=== PATIENT | male | born 1950 | race Caucasian/White ===

== ENCOUNTER 2019-10-21 15:15 | Emergency (ER) | payer MEDICARE, SELFPAY ==
[2019-10-21] VITALS (11 sets, daily range): BP systolic 95–111; BP diastolic 63–70; PULSE 78–98; RESP 21–38; TEMP 36.4–37.1; O2SAT 92–100
--- NOTE | ~2019-10-21 | CT_ITS ---
EXAMINATION: CT brain wo con EXAM DATE: 10/21/2019 15:41 INDICATION: Altered level of consciousness. STEMI. TECHNIQUE: Spiral CT of the head was performed without contrast. Axial, coronal and sagittal images were reviewed. The dose-length product (DLP) for this examination was 681.00 mGy-cm. The exposure w as tailored according to patient size, and iterative reconstruction (ASIR) was used as additional dos e reduction technique. There is no prior study for comparison. FINDINGS: There is no acute intraparenchymal hemorrhage. No evidence of intraparenchymal brain mass lesion. No evidence of acute infarction. Please note that initial head CT has limited sensitivity f or small or acute infarctions. Left occipital calvarial arachnoid granulation. There is periventric ular and subcortical hypodensity, nonspecific but probably related to small vessel ischemic disease. There is prominence of the sulci and ventricles related to cerebral atrophy. There is intracrania l carotid arteriosclerosis. There are no extra-axial collections. There is no mass effect or midlin e shift. The orbits are unremarkable. Soft tissue is unremarkable. The visualized sinuses and mast oid air cells are well aerated. IMPRESSION: 1. No acute intracranial findings. 2. Chronic age related findings. Reviewed, dictated and finalized at location A.
--- NOTE | ~2019-10-21 | XR_ITS ---
EXAMINATION: XR chest 1V INDICATION: Decreased breath sounds TECHNIQUE: AP view the chest is obtained on two radiographs. COMPARISON: None available FINDINGS: There is masslike opacity of the left midlung zone. A right pleural effusion is present. Ca rdiomegaly is noted. There is subcutaneous gas of the right chest wall which tracks into the right rivera praclavicular space and neck. IMPRESSION: 1. Masslike opacity of the right midlung zone which could be infection/inflammation, malignancy, or p ossibly pleural fluid. Further evaluation with CT of the chest is recommended. 2. Subcutaneous gas in the right chest wall tracking into the neck of unclear etiology, possibly rela maureen to right lung findings and can also be evaluated with chest CT. Reviewed, dictated and finalized at location B. IMPRESSION: 1. Masslike opacity of the right midlung zone which could be infection/inflamma tion, malignancy, or possibly pleural fluid. Further evaluation with CT of the chest is recommended. 2. Subcutaneous gas in the right chest wall tracking into the neck of unclear e tiology, possibly related to right lung findings and can also be evaluated with chest CT.
--- NOTE | ~2019-10-21 | CT_ITS ---
EXAMINATION: CT chest w con EXAM DATE: 10/21/2019 17:20 INDICATION: Abnormal chest x-ray. TECHNIQUE: Spiral CT of the chest following intravenous injection of 75 mL Omnipaque 350. Axial, cor onal and sagittal images were reviewed. Coronal maximum intensity pixel images of chest reviewed. Kranthi olmstead dose-length product (DLP) for this examination was 446.46 mGy-cm. The exposure was tailored accor ding to patient size (auto mA exposure control), and iterative reconstruction (ASIR) was used as marquita tional dose reduction technique. Correlation is made to chest x-ray same day. FINDINGS: There is infiltrative appearing right hilar soft tissue, probably combination of malignancy and metastatic lymphadenopathy, also insinuating around the donna. This is occluding the right midd le lobe bronchus causing narrowing of some other basilar segmental bronchi. There are multiple region s of loculated pleural fluid, given appearance could be malignant pleural effusion. Several of these loculations of small amount of gas inside, loculated hydropneumothoraces. Overall moderate amount of pleural fluid is present. There is moderate amount of gas identified within the deep fascial planes o f the right axilla, and small amount along the right posterior paraspinal musculature. There is small to moderate nonloculated left pleural effusion. Right lung multi segmental segmental a telectasis, left lower lobe subsegmental atelectasis. There is moderate pericardial effusion. No jaida tral pulmonary emboli. Some contrast refluxing into the hepatic veins could indicate poor right heart function. There are no osteoblastic or osteolytic lesions identified. IMPRESSION: 1. Infiltrative right hilar malignancy. 2. Multiple right pleural loculations, probably malignant and some with gas (loculated hydropneumoth oraces). 3. Right axillary subcutaneous gas, correlate for crepitus. Reportedly patient did have recent biops y which, if done percutaneously, could potentially explain this but please exclude fasciitis clinical ly. 4. Moderate pericardial effusion, small to moderate left pleural effusion. 5. Multisegmental right lung, subsegmental left lung atelectasis. Reviewed, dictated and finalized at location A. IMPRESSION: 1. Infiltrative right hilar malignancy. 2. Multiple right pleural loculations, probably malignant and some with gas (l oculated hydropneumothoraces). 3. Right axillary subcutaneous gas, correlate for crepitus. Reportedly patient did have recent biopsy which, if done percutaneously, could potentially explai n this but please exclude fasciitis clinically. 4. Moderate pericardial effusion, small to moderate left pleural effusion. 5. Multisegmental right lung, subsegmental left lung atelectasis.
--- NOTE | 2019-10-21 15:23 | ECG_ITS ---
Measurements Intervals [place] Rate: 96 P: NV: 0 QRS: 22 QRSD: 98 T: 42 QT: 375 QTc: 476 Interpretive Statements ACCLERATED JUNCTIONAL RHYTHM LOW QRS VOLTAGE- DIFFUSE LEADS CANNOT RULE OUT SEPTAL INFARCT, AGE INDETERMINATE ST ELEVATION IN ANTERIOR LEADS- CONSIDER ACUTE INJURY, PERICARDITIS OR EARLY REPOALRIZATION ABNORMAL ECG Electronically Signed On 10-21-2019 15:54:53 CDT by Cuate Rushing D.O.
--- NOTE | 2019-10-21 15:29 | ED.AMS ---
HPI - Altered Mental Status General Chief Complaint: Altered Mental Status Stated Complaint: SOB, STEMI Time Seen by Provider: 10/21/19 15:29 Source: family and EMS Mode of arrival: EMS Limitations: altered mental status History of Present Illness HPI narrative: Patient is a 69-year-old male with a history of recurrent right-sided hilar mass, right pleural effusion, recent discharge from [facility] on October 18 who presents for evaluation of altered mental status and shortness of breath. Patient was transported via EMS for shortness of breath, they were concerned for possible ST elevation on EKG, a STEMI was called, but after review of the EKG in transport, I do not feel this is consistent with STEMI. At the time of assessment after EMS arrived, patient is altered, pale appearing. Patient is denying any chest pain, he is reporting shortness of breath. Additional history unable to be obtained secondary to altered mental status. Related Data Home Medications Medication Instructions Recorded Confirmed apixaban 5 mg tablet 5 mg PO BID 03/22/19 diltiazem HCl 120 mg 120 mg PO BID 03/22/19 capsule,extended release 12 hr flecainide 50 mg tablet 50 mg PO BID tablet 03/22/19 ibuprofen 200 mg capsule 200 mg PO Q6H PRN 03/22/19 loratadine 10 mg tablet 10 mg PO DAILY 03/22/19 cquoxlxh-esw-sqonu acid 300 1 tablet PO DAILY 03/22/19 mcg-lycopene 600 mcg-lutein 300 mcg tablet sildenafil 100 mg tablet 100 mg PO DAILY PRN 03/22/19 Allergies Allergy/AdvReac Type Severity Reaction Status Date / Time codeine AdvReac Unknown UPSET Verified 03/22/19 10:59 STOMACH Review of Systems Review of Systems: ROS unobtainable: Yes unobtainable due to mental status PMFSH Past Medical History Medical History (Updated 10/21/19 @ 17:13 by Wendi Juarez MD) Depression with anxiety Dyslipidemia Erectile dysfunction 12/29/2017 Flexion contracture of joint of left hand History of Tgtza-Mtdxflwvs-Grvzc (WPW) syndrome Hx of non-Hodgkin's lymphoma Lung mass Pleural effusion Supraventricular tachycardia Tinnitus, bilateral Vitamin D deficiency Surgical History Surgical History (Updated 03/22/19 @ 11:21 by Farzana Edwards) History of cardiac catheterization 12/2018 History of tonsillectomy and adenoidectomy [place] teeth extracted Social History Social History Smoking status: Former smoker Tobacco type: cigarettes Second hand tobacco smoke exposure: No Smoking end date: 02/09/97 Alcohol intake: current Substance use: never Substance use type: does not use Exam Narrative: Exam Narrative: GENERAL: Somnolent, arousable to verbal stimuli, fatigued appearing HEAD: Normocephalic, atraumatic. EYES: PERRLA and EOMI. ENT: Nares clear, no rhinorrhea or epistaxis. Mucous membranes dry NECK: Supple. CHEST: Hypoxemia, no tachypnea, mild use of accessory muscles, decreased breath sounds bilaterally, crackles present bilaterally HEART: Regular rate, sinus rhythm ABDOMEN:Non distended, non tender EXTREMITIES: Normal range of motion. No edema. SKIN: Pale, cool, no rash, surgical incision site right lateral chest wall, noted to have ecchymosis, sutures still intact NEURO:No focal deficits. Alert and oriented x3 Course Vital Signs Vital signs: Vital Signs Temperature 36.4 C 10/21/19 15:10 Pulse Rate 98 10/21/19 15:10 Respiratory Rate 24 H 10/21/19 15:10 Blood Pressure 100/67 10/21/19 15:10 Pulse Oximetry 92 10/21/19 15:10 Temperature 36.7 C 10/21/19 18:10 Pulse Rate 78 10/21/19 18:10 Respiratory Rate 22 H 10/21/19 18:10 Blood Pressure 99/70 L 10/21/19 18:10 Pulse Oximetry 100 10/21/19 18:10 MDM - Altered Mental Status MDM Narrative Medical decision making narrative: Patient presented for evaluation of shortness of breath. At the time of assessment, patient is ill-appearing, myself as well as cardiologis
[2019-10-21] MEDS: ONDANSETRON INJ 4 MG/2 ML VIAL IV PUSH (15:31)
[2019-10-21] MEDS: NALOXONE HCL 0.4 MG/ML VIAL IV PUSH (15:31)
[2019-10-21 15:34] LABS: Alveolar/Arterial O2 Gradient 115.6 mmHg; Base Excess ABG -2.3 mEq/l (+/-2.0); Carboxyhemoglobin 0.3 % THb (0-2.0); Fractional Inspired Oxygen 32 %; HCO3 ABG 20.3 mEq/l (22.0-26.0); Methemoglobin ABG 0.2 %THb (0-1.5); Oxygen Content ABG 15.7 %vol (16.0-22.0); Oxygen Saturation ABG 96.5 % (95.0-100.0); Oxyhemoglobin 94.9 % THb (90.0-100.0); PCO2 ABG 28.5 mmHg (35.0-45.0); PO2 ABG 79.2 mmHg (80.0-100.0); PO2 FiO2 Ratio Arterial Blood 2.47 %; Reduced Hemoglobin 4.6 %THb (0-5.0); Total Hemoglobin 11.7 g/dL (12.0-18.0); pH ABG 7.471 (7.350-7.450)
[2019-10-21 15:35] LABS: Device NASAL CANNULA; Modified Allen's Test Pass; Site Drawn RIGHT RADIAL
[2019-10-21 15:43] LABS: Basophils Percent Auto 0.3 % (0.2-1.2); Eosinophils Absolute Auto 0.1 K/mm3 (0-0.3); Eosinophils Percent Auto 0.5 % (0-4.4); Hematocrit 31.6 % (42.0-52.0); Hemoglobin 10.8 g/dL (14.0-18.0); Immature Granulocyte Absolute 0.04 K/mm3 (0.00-0.031); Immature Granulocyte Percent A 0.4 % (0-0.5); Lymphocytes Absolute Auto 0.46 K/mm3 (0.9-3.2); Lymphocytes Percent Auto 4.7 % (18.3-44.2); Mean Corpuscular HGB Conc 34.2 g/dl (32-36); Mean Corpuscular Hemoglobin 33.8 pg (26-34); Mean Corpuscular Volume 98.8 fl (80-100); Mean Platelet Volume 9.8 fl (7.4-10.4); Monocytes Percent Auto 9.7 % (2.6-8.5); Neutrophils Absolute Auto 8.2 K/mm3 (1.3-6.7); Neutrophils Percent Auto 84.4 % (45.5-73.1); Platelet Count Result 317 k/mm3 (150-375); Red Cell Distribution Width 14.5 % (11.5-14.5); White Blood Count 9.8 K/mm3 (4.5-10.0)
[2019-10-21 15:57] LABS: INR 1.4; Partial Thromboplastin Time 28.6 SECONDS (22.3-36.8); Prothrombin Time 16.7 Seconds (11.1-14.7)
[2019-10-21 15:57] LABS: Lactic Acid Reflex 2.7 mmol/L (0.7-2.1)
[2019-10-21 15:59] LABS: Alanine Aminotransferase 35 U/L (4-50); Albumin Level 2.8 g/dL (3.5-5.1); Alkaline Phosphatase 146 U/L (38-126); Anion Gap 9 mmol/L (8-16); Aspartate Amino Transferase 42 U/L (17-59); Blood Urea Nitrogen 18 mg/dL (9-20); Calcium 8.4 mg/dL (8.4-10.2); Carbon Dioxide 24 mmol/L (22-30); Chloride 95 mmol/L (98-107); Estimated Glomerular Filt Rate > 60; Glucose 140 mg/dL (75-110); Potassium 4.5 mmol/L (3.4-5.0); Sodium 128 mmol/L (137-145)
[2019-10-21 16:03] LABS: NT Pro B Type Natriuretic Pept 1560 PG/ML (5-100)
[2019-10-21 16:07] LABS: Troponin I < 0.012 ng/mL (0.000-0.034)
[2019-10-21 16:11] LABS: CRP 23.9 mg/dL (<1.0)
[2019-10-21 16:18] LABS: Ammonia < 9 umol/L (9-30)
--- NOTE | 2019-10-21 17:05 | PC.NURSE ---
Patient is in radiology at this time.
--- NOTE | 2019-10-21 17:25 | PC.NURSE ---
Patient is in radiology at this time.
[2019-10-21] MEDS: SODIUM CHLORIDE 0.9% IV 1,000 ML 999 ML IV CONT (18:05)
[2019-10-21] MEDS: LIDOCAINE HCL 2% GEL UROJET 10 ML PKG (18:05)
[2019-10-21 18:34] LABS: Add Urine Microscopic? YES; Appearance Urine Clear (Clear); Bacteria Urine Trace /hpf; Bilirubin Urine Negative (Negative); Blood Urine 2+ (Negative); Color Urine Amber (Yellow); Glucose Urine UA Negative (Negative); Ketones Urine Negative (Negative); Leukocyte Esterase Ur Negative LEU/UL (Negative); Mucus Urine Moderate /lpf; Nitrate Urine Negative (Negative); Protein Urine 1+ mg/dL (Negative); RBC Urine 21-50 /hpf (0-2); Squamous Epithelial Cell Urine Rare /hpf (Few); WBC Urine 0-3 /hpf
[2019-10-21 18:35] LABS: Specific Grav Ur 1.042 (1.001-1.035)
[2019-10-21 18:37] LABS: Amphetamine Screen Urine Negative (Negative); Barbiturate Screen Urine Negative (Negative); Benzodiazepines Screen Urine Positive (Negative); Cannabinoid Screen Urine Negative (Negative); Cocaine Screen Urine Negative (Negative); Methadone Screen Urine Negative (Negative); Opiate Screen Urine Positive (Negative); Phencyclidine Screen Urine Negative (Negative)
[2019-10-21 18:39] LABS: Reflex Lactic Acid Yes or No Add Lactic
[2019-10-21 19:17] LABS: Alveolar/Arterial O2 Gradient 65.6 mmHg; Base Excess ABG -0.7 mEq/l (+/-2.0); Carboxyhemoglobin 0.1 % THb (0-2.0); Fractional Inspired Oxygen 36 %; HCO3 ABG 23.6 mEq/l (22.0-26.0); Methemoglobin ABG 0.2 %THb (0-1.5); Oxygen Content ABG 15.4 %vol (16.0-22.0); Oxygen Saturation ABG 98.9 % (95.0-100.0); PCO2 ABG 37.4 mmHg (35.0-45.0); PO2 ABG 147.7 mmHg (80.0-100.0); Reduced Hemoglobin 1.7 %THb (0-5.0); pH ABG 7.418 (7.350-7.450)
[2019-10-21 19:18] LABS: Lactic Acid 1.1 mmol/L (0.7-2.1)
[2019-10-21 19:18] LABS: Device NASAL CANNULA; Modified Allen's Test Pass; Site Drawn LEFT RADIAL
== END 2019-10-21 20:30 | disposition short-term general hospital (02) ==
PROVIDERS: Emergency Provider Emergency Medicine; PCP Family Medicine
DX: J90 Pleural effusion, not elsewhere classified (principal); E86.0 Dehydration; R41.0 Disorientation, unspecified; R65.20 Severe sepsis without septic shock; Z87.891 Personal history of nicotine dependence; I45.6 Pre-excitation syndrome; Z85.72 Personal history of non-Hodgkin lymphomas; R06.02 Shortness of breath
CPT/HCPCS: 36415; 36600; 51702; 70450; 71045; 71260; 80053; 80307; 81001; 82140; 82375; 82805; 83050; 83605; 83880; 84484; 85025; 85610; 85730; 86140; 87040; 93005; 96365; 96367; 96375; 99285; J0692; J2310; J2405; J3370; J7030; Q9967

== ENCOUNTER 2019-11-27 05:55 | Emergency (ER) | payer MEDICARE, SELFPAY ==
--- NOTE | ~2019-11-27 | CT_ITS ---
EXAMINATION: CTA chest PE protocol DATE: 11/27/2019 07:40 INDICATION: Shortness of breath. TECHNIQUE: Computed tomography angiography (CTA) of the chest was performed with 100 mL Omnipaque-350 intravenous contrast timed to evaluate the pulmonary arteries. Coronal maximum intensity projection 3D-reconstructions were created by the technologist. Automated exposure control and iterative reconst ruction technique were employed. The dose-length product was 684.18 mGy-cm. COMPARISON: Chest CT 10/21/2019 FINDINGS: The lungs demonstrate widespread smooth septal thickening with areas of groundglass opacity (crazy paving). There are staple lines in right middle lobe. Calcified left lung nodules and calcifi ed left hilar lymph nodes are consistent with old granulomatous disease. There is a small loculated r ight pleural effusion. There is a small left pleural effusion. There are right-sided pleural catheter is noted. There is mucous in the trachea. There is right atrial enlargement of the heart. There are coronary artery calcifications. No pericardial effusion. There is no pulmonary embolus. Calcification s in the spleen are consistent with old granulomatous disease. There is severe thoracic spondylosis. IMPRESSION: 1. No pulmonary embolus. 2. Moderate pulmonary edema. 3. Small loculated right pleural effusion with pleural catheter. Small left pleural effusion. Reviewed, dictated and finalized at location A. IMPRESSION: 1. No pulmonary embolus. 2. Moderate pulmonary edema. 3. Small loculated right pleural effusion with pleural catheter. Small left ple ural effusion.
--- NOTE | ~2019-11-27 | XR_ITS ---
EXAMINATION: XR chest 1V portable DATE: 11/27/2019 06:39 INDICATION: Hypoxemia. TECHNIQUE: A single frontal view of the chest was obtained on 2 radiographs. COMPARISON: Chest single view 10/21/2019, chest CT 11/27/2019 FINDINGS: There are airspace and interstitial opacities in all lung zones bilaterally. There is a sma ll loculated right pleural effusion with pleural catheter. No pneumothorax. The heart size is normal. IMPRESSION: 1. Diffuse lung disease, consistent with moderate pulmonary edema. 2. Small loculated right pleural effusion with pleural catheter. Reviewed, dictated and finalized at location A.
[2019-11-27 06:01] VITALS: BP 99/86; PULSE 100; RESP 41; TEMP 36.3; O2SAT 70
--- NOTE | 2019-11-27 06:06 | ED.SOB ---
HPI - SOB/Dyspnea General Chief Complaint: Shortness of Breath/Dyspnea <Wendi Juarez MD - Last Filed: 11/27/19 07:09> Stated Complaint: sob <Wendi Juarez MD - Last Filed: 11/27/19 07:09> Time Seen by Provider: 11/27/19 06:06 <Wendi Juarez MD - Last Filed: 11/27/19 07:09> Source: patient <Wendi Juarez MD - Last Filed: 11/27/19 07:09> Mode of arrival: wheelchair <Wendi Juarez MD - Last Filed: 11/27/19 07:09> Limitations: no limitations <Wendi Juarez MD - Last Filed: 11/27/19 07:09> History of Present Illness HPI Narrative: Patient is a 69-year-old male with a history of B-cell non-Hodgkin lymphoma, recurrent right-sided pleural effusion who is following at [facility] who presents to the emergency department for evaluation of shortness of breath. Patient with increased shortness of breath over the past 24 hours. Patient denying any chest pain, cough or fever. No rhinorrhea or congestion. Pt without any recent known covid exposures. He denies myalgias. Patient discharged from [facility] approximately 4 weeks prior. Has been doing well at home otherwise. Family has been removing fluid from his right pleurodesis tubing, patient's reported that each day has had decreased fluid removal, yesterday she was only able to remove 75 mL. He denies any lower leg swelling, calf pain or edema. <Wendi Juarez MD - Last Filed: 11/27/19 07:09> Related Data Home Medications: Home Medications Medication Instructions Recorded Confirmed ibuprofen 200 mg capsule 800 mg PO HS PRN 03/22/19 acetaminophen [Tylenol Extra 1,000 mg PO TID PRN 10/21/19 Strength] calcium carbonate [Antacid 10/21/19 (calcium carbonate)] loratadine-pseudoephedrine tablet PO 10/21/19 [Claritin-D 12 Hour] oxycodone 10/21/19 polyethylene glycol 3350 [Miralax] 17 g PO BID 10/21/19 acyclovir 11/27/19 allopurinol 11/27/19 lactulose 11/27/19 <Wendi Juarez MD - Last Filed: 11/27/19 07:09> Allergies/Adverse Reactions: Allergies Allergy/AdvReac Type Severity Reaction Status Date / Time codeine AdvReac Unknown UPSET Verified 10/21/19 19:11 STOMACH gabapentin AdvReac Hallucinati Verified 11/27/19 06:13 ng <Wendi Juarez MD - Last Filed: 11/27/19 07:09> Review of Systems Review of Systems: Narrative: CONSTITUTIONAL: Denies fever, chills, or sweats. EYES: Denies visual changes ENT: Denies rhinorrhea, congestion, sore throat, or otalgia. CARDIOVASCULAR: Denies chest pain, palpitations, or edema. RESPIRATORY: Reports shortness of breath, denies cough GASTROINTESTINAL: Denies abdominal pain, nausea, vomiting, or diarrhea. GENITOURINARY: Denies dysuria or hematuria. SKIN: Denies rash or itching. MUSCULOSKELETAL: Denies back pain, joint pain, or myalgia. NEUROLOGIC: Denies headache, numbness, or weakness. <Wendi Juarez MD - Last Filed: 11/27/19 07:09> [facility] Past Medical History Medical History: Medical History Depression with anxiety Dyslipidemia Erectile dysfunction 12/29/2017 Flexion contracture of joint of left hand History of Rbuqx-Bghxmyusi-Hcraa (WPW) syndrome Hx of non-Hodgkin's lymphoma Lung mass Pleural effusion Supraventricular tachycardia Tinnitus, bilateral Vitamin D deficiency <Wendi Juarez MD - Last Filed: 11/27/19 07:09> Surgical History Surgical History: Surgical History History of cardiac catheterization 12/2018 History of tonsillectomy and adenoidectomy [place] teeth extracted <Wendi Juarez MD - Last Filed: 11/27/19 07:09> Family History Family History: Family History Father Malignant neoplasm of prostate Sibling Family history of malignant neoplasm of breast in first degree relative Famil
[2019-11-27 06:07] VITALS: O2SAT 79
--- NOTE | 2019-11-27 06:08 | ECG_ITS ---
Measurements Intervals [place] Rate: 97 P: [place]: 0 QRS: -2 QRSD: 98 T: 231 QT: 344 QTc: 439 Interpretive Statements ECTOPIC ATRIAL RHYTHM INCOMPLETE RIGHT BUNDLE BRANCH BLOCK CANNOT RULE OUT SEPTAL INFARCT, AGE INDETERMINATE BORDERLINE ST-T WAVE ABNORMALITY- DIFFUSE LEADS BASELINE ARTIFACT- I, II, AVR, AVL, AVF, V1-V6 ABNORMAL ECG Electronically Signed On 11-27-2019 8:03:26 CDT by Cuate Rushing D.O.
[2019-11-27 06:18] VITALS: PULSE 85
[2019-11-27] MEDS: SODIUM CHLORIDE 0.9% IV 500 ML 999 ML IV CONT (06:23)
[2019-11-27 06:27] LABS: Alveolar/Arterial O2 Gradient 557.9 mmHg; Base Excess ABG -5.4 mEq/l (+/-2.0); Carboxyhemoglobin 1.4 % THb (0-2.0); Fractional Inspired Oxygen 90 %; HCO3 ABG 15.7 mEq/l (22.0-26.0); Methemoglobin ABG 0.2 %THb (0-1.5); Oxygen Content ABG 17.1 %vol (16.0-22.0); PO2 ABG 62.1 mmHg (80.0-100.0); PO2 FiO2 Ratio Arterial Blood 0.69 %; Reduced Hemoglobin 9.4 %THb (0-5.0); Total Hemoglobin 13.7 g/dL (12.0-18.0); pH ABG 7.487 (7.350-7.450)
[2019-11-27 06:29] LABS: PCO2 ABG 21.2 mmHg (35.0-45.0)
--- NOTE | 2019-11-27 06:34 | PC.NURSE ---
Co2 of 21. O2 62. RT called ED to make aware.
[2019-11-27 06:36] VITALS: BP 110/76; PULSE 82; RESP 32; O2SAT 90
[2019-11-27 06:44] LABS: Basophils Absolute Auto 0.1 K/mm3 (0.0-0.1); Basophils Percent Auto 0.7 % (0.2-1.2); Eosinophils Absolute Auto 0.1 K/mm3 (0-0.3); Eosinophils Percent Auto 0.4 % (0-4.4); Hematocrit 40.9 % (42.0-52.0); Hemoglobin 13.8 g/dL (14.0-18.0); Immature Granulocyte Absolute 0.43 K/mm3 (0.00-0.031); Immature Granulocyte Percent A 2.2 % (0-0.5); Lymphocytes Absolute Auto 2.78 K/mm3 (0.9-3.2); Lymphocytes Percent Auto 14.2 % (18.3-44.2); Mean Corpuscular HGB Conc 33.7 g/dl (32-36); Mean Corpuscular Hemoglobin 32.2 pg (26-34); Mean Corpuscular Volume 95.6 fl (80-100); Mean Platelet Volume 10.2 fl (7.4-10.4); Monocytes Absolute Auto 0.9 K/mm3 (0.1-0.6); Monocytes Percent Auto 4.7 % (2.6-8.5); Neutrophils Absolute Auto 15.3 K/mm3 (1.3-6.7); Neutrophils Percent Auto 77.8 % (45.5-73.1); Platelet Count Result 274 k/mm3 (150-375); Red Blood Count 4.28 M/mm3 (4.6-6.20); Red Cell Distribution Width 16.7 % (11.5-14.5); White Blood Count 19.6 K/mm3 (4.5-10.0)
[2019-11-27 06:55] LABS: INR 1.1; Prothrombin Time 13.7 Seconds (11.1-14.7)
[2019-11-27 06:56] LABS: Partial Thromboplastin Time 29.3 SECONDS (22.3-36.8)
[2019-11-27 06:58] LABS: D Dimer 3.83 ug/mL (<0.48)
[2019-11-27 07:03] LABS: Alanine Aminotransferase 30 U/L (4-50); Alkaline Phosphatase 130 U/L (38-126); Anion Gap 10 mmol/L (8-16); Aspartate Amino Transferase 38 U/L (17-59); Bilirubin,Total 1.4 mg/dL (0.2-1.3); Blood Urea Nitrogen 20 mg/dL (9-20); Calcium 9.3 mg/dL (8.4-10.2); Carbon Dioxide 25 mmol/L (22-30); Chloride 98 mmol/L (98-107); Estimated CRCL calculation 76 ml/min; Estimated Glomerular Filt Rate > 60; Glucose 138 mg/dL (75-110); Potassium 4.1 mmol/L (3.4-5.0); Sodium 133 mmol/L (137-145)
[2019-11-27 07:07] LABS: Lactic Acid Reflex 2.5 mmol/L (0.7-2.1)
[2019-11-27 07:08] LABS: NT Pro B Type Natriuretic Pept 1800 PG/ML (5-100); Troponin I < 0.012 ng/mL (0.000-0.034)
[2019-11-27] MEDS: SODIUM CHLORIDE 0.9% IV 1,000 ML 999 ML IV CONT (07:08)
[2019-11-27 07:11] LABS: CRP 19.6 mg/dL (<1.0)
[2019-11-27 08:22] VITALS: BP 110/69; PULSE 82; RESP 17; O2SAT 100
[2019-11-27] MEDS: FUROSEMIDE INJ 40 MG/4 ML VIAL 20 MG IV PUSH (09:22)
[2019-11-27 09:52] LABS: Reflex Lactic Acid Yes or No Add Lactic
[2019-11-27 10:23] LABS: Lactic Acid 1.5 mmol/L (0.7-2.1)
[2019-11-27 11:38] VITALS: BP 111/77; PULSE 80; RESP 24; O2SAT 93
[2019-11-28 07:19] LABS: Device NON-REBREATHER MASK
== END 2019-11-27 11:40 | disposition short-term general hospital (02) ==
PROVIDERS: Emergency Provider Emergency Medicine; PCP Family Medicine
DX: A41.9 Sepsis, unspecified organism (principal); J96.01 Acute respiratory failure with hypoxia; J18.9 Pneumonia, unspecified organism; Z20.828 Contact with and (suspected) exposure to other viral communicable diseases; E78.5 Hyperlipidemia, unspecified; I45.6 Pre-excitation syndrome; Z85.72 Personal history of non-Hodgkin lymphomas; E55.9 Vitamin D deficiency, unspecified; Z87.891 Personal history of nicotine dependence
CPT/HCPCS: 36415; 36600; 71045; 71275; 80053; 82375; 82805; 83050; 83605; 83880; 84484; 85025; 85380; 85610; 85730; 86140; 87040; 87635; 93005; 96361; 96365; 96367; 96375; 99291; C9803; J0456; J0696; J1940; J3370; J7030; J7040; Q9967; U0003